=== PATIENT | female | born 1955 | race Caucasian/White ===

== ENCOUNTER → 2016-08-09 | Outpatient (CLI) | payer BC ==
[2016-08-09 13:42] VITALS: BP 145/5
== END ==
LOC: MHUC 13:16
PROVIDERS: ATTEND Nurse Practitioner
DX: R50.9 Fever, unspecified (principal)
CPT/HCPCS: 81002; 99213

== ENCOUNTER → 2016-08-09 | Outpatient (CLI) | payer BC ==
[2016-08-09 14:42] LABS: BASOPHILS % (AUTO) 0 % (0-2); EOSINOPHILS # (AUTO) 0.5 10^3uL; EOSINOPHILS % (AUTO) 6 % (0-4); LYMPHOCYTES # (AUTO) 2.7 X10^3; MEAN CORPUSCULAR HEMOGLOBIN 30.5 PG (26.0-34.0); MEAN CORPUSCULAR HGB CONC 32.9 g/dL (31.0-37.0); MEAN CORPUSCULAR VOLUME 93 FL (80-100); MEAN PLATELET VOLUME 9.1 FL (6.0-9.5); MONOCYTES # (AUTO) 0.9 X10^3; MONOCYTES % (AUTO) 11 % (3-11); NEUTROPHILS # (AUTO) 3.5 X10^3; NEUTROPHILS % (AUTO) 46 % (51-67); PLATELET COUNT 272 10^3uL (150-450); WHITE BLOOD COUNT 7.53 10^3uL (4.0-11.0)
[2016-08-09 15:05] LABS: ALBUMIN 4.1 g/dL (3.4-5.0); ANION GAP 12.7 MEQ/L (3-15); CALCULATED IONIZED CALCIUM 3.7 mg/dL (3.8-4.6); TOTAL PROTEIN 7.8 g/dL (6.4-8.5)
[2016-08-09 15:57] LABS: ERYTHROCYTE SEDIMENTATION RT* 21 mm/hr (0-23)
== END ==
LOC: LAB 14:14
PROVIDERS: ATTEND Nurse Practitioner
DX: R50.9 Fever, unspecified (principal); R05 Cough; R53.83 Other fatigue
CPT/HCPCS: 36415; 80053; 82150; 82550; 83690; 84443; 85025; 85652; 86140; 87486; 87581; 87633; 87798